=== PATIENT | male | born 1975 | race Caucasian/White ===

== ENCOUNTER 2023-12-06 06:59 | Emergency (ER) | payer OTHER, SELFPAY ==
[2023-12-06 07:11] VITALS: BP 147/89
--- NOTE | 2023-12-06 08:14 | ED.GENMED ---
History of Present Illness
General
Chief Complaint: Eye Problems
Source: patient
Exam Limitations: none
Time Seen by Provider: 12/06/23 08:04
Nursing documentation reviewed up to this point in time: agreed with
Travel History
Have you had any contact with someone who has COVID-19?: No
Do you have any symptoms of coronavirus? Fever > 100 degrees, chills, cough, shortness of breath, sore throat, loss of taste or smell, muscle aches, or headache?: No
History of Present Illness
History of Present Illness:
Patient is a 48-year male who presents to the ER for evaluation. He reports he had mild cold symptoms for the past several days but patient woke up yesterday with redness to bilateral eyes. He had discomfort throughout the day yesterday and did
call his family doctor and was prescribed Cipro eyedrops. He has used a total of 3 doses of eyedrops however complains of increasing pain to the eyes. He feels a lot of pressure behind his bilateral eyes. He reports his eyes are red bilaterally
and he did wake up with drainage from both of his eyes. He denies any actual fever or chills. He complains of swelling around his eyes. He does have light sensitivity. He does not wear contacts .
Past History
Past History
ED Past Medical History: HTN, Hypercholesterolemia and Other (Patient has a history of diverticulitis)
ED Past Surgical History: Bowel resection (due to diverticulitis), Orthopedic (laminectomy) and Other (The patient has had 3 hernia surgeries and a vasectomy. Left femur surgery for traumatic fracture.)
Social History
Tobacco: Non-smoker
Alcohol: Occasional
Drug: None
Personal: Single
Living: with family
Employment: Employed
Family History
Family History: Other
Review of Systems
Review of Systems
Allergies reviewed?: Yes
All Other Systems: ROS reviewed and negative except as documented in HPI and ROS
Constitutional: Reports no symptoms; Denies fever, fatigue or chills
EENT: Reports other (Bilateral eye redness swelling drainage)
Respiratory: Reports no symptoms
Cardiac: Reports no symptoms
ABD/GI: Reports no symptoms
Musculoskeletal: Reports no symptoms
Skin: Reports no symptoms
Neurological: Reports no symptoms
Psychiatric: Reports no symptoms
Phy Exam
General Physical Exam
General Presentation: no apparent distress
General age: appears stated age
General Skin: warm and dry
General Habitus: normal
General Mental: alert
General Hydration: appears well hydrated
Eye Exam
Eye Exam: PERRL, EOMI and other (Bilateral eyes are injected small amount of yellowish drainage in each eye eyelids mildly swollen, no pain with eye movement pupils equal round and reactive no corneal abrasion or dye uptake pressure in right eye 18
left eye 19)
Able to obtain acuity?: Yes
Eye Exam General: PERRL: bilateral and EOM intact: bilateral
Pupil Exam: Bilateral: round and reactive
Neurological Exam
Neurological Exam: alert and oriented x3
Musculoskeletal Exam
Musculoskeletal Exam: full ROM
Skin Exam
Skin Exam: normal color and warm/dry
Psychiatric Exam
Psychiatric Exam: normal mood/affect
Course
Orders/Labs/Results
Orders:
Orders
12/06/23 08:14
Visual Acuity- Treatment ONCE
Vital Signs
Initial and Last Documented VS:
Initial Vital Signs
Temp Pulse Resp BP Pulse Ox
99.1 F 63 16 147/89 99
12/06/23 07:11 12/06/23 07:11 12/06/23 07:11 12/06/23 07:11 12/06/23 07:11
Last Documented Vital Signs
Temp Pulse Resp BP Pulse Ox
99.1 F 63 16 147/89 99
12/06/23 07:11 12/06/23 07:11 12/06/23 07:11 12/06/23 07:11 12/06/23 07:11
MDM/Problems Addressed
Differential Diagnosis Includes:
Not limited to viral syndrome, conjunctivitis less likely glaucoma less likely cellulitis
MDM/Problems Addressed:
Patient started with mild cold symptoms and then developed redness to bilateral eyes with crusting, drainage yesterday. He used Polytrim and spoke with his family prescribed him Cipro. He took 3 doses of Cipro eyedrops but complains of
increasing redness woke up with crusting eyes today. Patient no acute distress minimal swelling around both eyes likely conjunctivitis patient denies any fevers minimally blurry vision from drainage. Patient with normal pressures no evidence of
septal orbital cellulitis at this time patient very nontoxic-appearing increasing redness may be possible side effect of Cipro however likely viral conjunctivitis which will resolve on its own. Will however have patient stop Cipro and start
Polytrim with close outpatient follow-up ophthalmology
*Critical Care Note
Total Time (30-74mins, 75-104mins- exclusive of procedures): Not Applicable
ED Attending Note
-
Portions of this chart may have been created with voice recognition software.� Occasional wrong word or��sound alike� substitutions may have occurred due to the inherent limitations of voice recognition software.
Discharge Plan
Departure
Patient Disposition: Home (Routine Discharge)
Date of Disposition: 12/06/23
Time of Disposition: 09:14
Patient with high blood pressure during this ER visit?: Yes
Condition: Fair
Covid-19: Not Applicable
Discharge Problem:
Conjunctivitis
Instructions: Conjunctivitis (Noninfectious Pinkeye) (DC), BLOOD PRESSURE
Prescriptions:
New
polymyxin B sulf-trimethoprim 10,000 unit- 1 mg/mL drops
1 drp ophthalmic (eye) Q3H 7 Days Qty: 10 0RF
Rx Instructions:
apply to bilateral eyes
No Action
simvastatin 40 MG tablet
40 mg PO QPM
diphenhydramine HCl [Benadryl] 25 MG capsule
25 mg PO PRN PRN (Reason: itching)
lisinopril-hydrochlorothiazide 1 EACH tablet
1 ea PO DAILY
hydromorphone 4 MG tablet
4 mg PO BIDPRN PRN (Reason: pain)
prednisone 20 MG tablet
40 mg PO DAILY Qty: 10 0RF
diazepam 5 MG tablet
5 mg PO TIDPRN PRN (Reason: Muscle relaxent) Qty: 15 0RF
hydromorphone 4 MG tablet
4 mg PO Q6HPRN PRN (Reason: Pain) Qty: 15 0RF
prednisone 20 MG tablet
40 mg PO DAILY Qty: 10 0RF
hydromorphone 4 MG tablet
4 mg PO Q6HPRN PRN (Reason: Pain) Qty: 10 0RF
oxycodone-acetaminophen [Percocet] 5-325 mg tablet
1 tab PO Q6HPRN PRN (Reason: pain) Qty: 10 0RF
sucralfate [Carafate] 100 mg/mL suspension
10 ml PO ACHS Qty: 400 0RF
Referrals:
Brionna iVckers PA-C [Family Provider] -
Debbie Winters MD [Active] -
Activity Restrictions/Additional Instructions:
As discussed you were given a prescription for Polytrim. Start Polytrim today. Instill 1 drop in both eyes every 3 hours while awake for 7 to 10 days. Stop Cipro eyedrops. You may take ibuprofen every 8 hours for discomfort or alternate with
Tylenol. Cool compresses to eyes as needed. Follow-up with ophthalmology in the next several days. Return if any worsening of symptoms including increased pain decreased vision facial swelling facial redness or any further concerns.
Interventions
Interventions:
*Risk Screen - Suicide Last Done: 12/06/23 07:11
*General Assessment Last Done: 12/06/23 08:32
*Neglect/Abuse Screening Last Done: 12/06/23 08:32
*ED COVID-19 Vaccine History Last Done: 12/06/23 07:11
[2023-12-06 09:21] VITALS: BP 142/68
== END 2023-12-06 09:22 | disposition home or self-care (01) ==
LOC: EMR 06:59
PROVIDERS: EMERGENCY PHYSICIAN Emergency Medicine; FAMILY PHYSICIAN Physician Assistant
DX: H10.9 Unspecified conjunctivitis (principal); I10 Essential (primary) hypertension; J00 Acute nasopharyngitis [common cold]
CPT/HCPCS: 99283

== ENCOUNTER 2024-02-12 06:13 | Day surgery (SDC) | payer OTHER, SELFPAY ==
[2024-02-12] VITALS (10 sets, daily range): BP systolic 136–146; BP diastolic 82–89; BMI 28.6
[2024-02-12] MEDS: CELEBREX 200 MG PO (11:33)
[2024-02-12] MEDS: TYLENOL 1000 MG PO (11:33)
[2024-02-12] MEDS: NORMOSOL-R 1000 IV (11:35)
--- NOTE | 2024-02-12 11:41 | PTCARENOTE ---
Per Dr. Gilliam patient does not need a PT consult prior to surgery (per pre-op orders). Disregard order. Will monitor patient.
[2024-02-12] MEDS: ZOFRAN 4 MG IV (13:35)
[2024-02-12] MEDS: COMPAZINE 5 MG IV (13:53)
== END 2024-02-12 15:32 | disposition home or self-care (01) ==
LOC: SDS 06:13
PROVIDERS: ATTENDING PHYSICIAN Specialist
DX: M19.012 Primary osteoarthritis, left shoulder (principal); M89.512 Osteolysis, left shoulder
CPT/HCPCS: 29824

== ENCOUNTER 2024-03-08 07:25 | Emergency (ER) | payer OTHER, SELFPAY ==
[2024-03-08 07:31] VITALS: BP 149/103
[2024-03-08] MEDS: DILAUDID 0.5 MG IM (07:44)
--- NOTE | 2024-03-08 08:16 | ED.GENMED ---
History of Present Illness
General
Chief Complaint: Male Genito-Urinary Symptoms
Time Seen by Provider: 03/08/24 07:41
Travel History
Have you had any contact with someone who has COVID-19?: No
Do you have any symptoms of coronavirus? Fever > 100 degrees, chills, cough, shortness of breath, sore throat, loss of taste or smell, muscle aches, or headache?: No
History of Present Illness
History of Present Illness:
48-year-old male who presents to the emergency department for evaluation of relatively sudden onset left lower back pain radiating to the left testicle beginning last night. Pain is sharp in nature and he has exquisite tenderness to any palpation
of the left testicle. Denies any dysuria, hematuria, urinary urgency or frequency. No fevers or chills. Does have chronic low back pain secondary to degenerative disc disease but states this is different from what he typically experiences pain
lopez. No nausea or vomiting. No lower GI symptoms
Past History
Past History
ED Past Medical History: HTN, Hypercholesterolemia and Other (Patient has a history of diverticulitis)
ED Past Surgical History: Bowel resection (due to diverticulitis), Orthopedic (laminectomy) and Other (The patient has had 3 hernia surgeries and a vasectomy. Left femur surgery for traumatic fracture.)
Social History
Tobacco: Non-smoker
Alcohol: Occasional
Drug: None
Personal: Single
Living: with family
Employment: Employed
Family History
Family History: Other
Review of Systems
Review of Systems
Allergies reviewed?: Yes
All Other Systems: ROS reviewed and negative except as documented in HPI and ROS
Phy Exam
Physical Exam
Physical Exam:
GEN: Well appearing, NAD, WDWN
HEENT: Oral mucosa moist, no scleral icterus
Cardiac: Regular rate
Lung: No respiratory distress, no tachypnea
: Severe tenderness elicited to the left hemiscrotum, no obvious swelling or erythema, normal testicular lie bilaterally unable to adequately assess cremasteric reflex secondary to patient pain
MSK: No gross deformity or injuries
Skin: Good color, no pallor or jaundice, no rashes
Neuro: AO x3, moves all extremities freely
Psych: Calm, cooperative
Course
Orders/Labs/Results
Orders:
Orders
03/08/24 07:35
Scrotum US [US Scrotum] Urgent
Comment:
Reason For Exam: left testicle pain severe
03/08/24 07:41
HYDROmorphone [Dilaudid] 0.5 mg IM NOW STA
03/08/24 08:59
CT Abd/pel Without Iv Or Oral Urgent
Comment:
Reason For Exam: L flank pain
03/08/24 09:46
Ketorolac [Toradol] 30 mg IM NOW STA
Vital Signs
Initial and Last Documented VS:
Initial Vital Signs
Temp Pulse Resp BP Pulse Ox
97.7 F 66 18 149/103 100
03/08/24 07:31 03/08/24 07:31 03/08/24 07:31 03/08/24 07:31 03/08/24 07:31
Last Documented Vital Signs
Temp Pulse Resp BP Pulse Ox
97.7 F 66 18 149/103 100
03/08/24 07:31 03/08/24 07:31 03/08/24 07:31 03/08/24 07:31 03/08/24 07:31
MDM/Problems Addressed
MDM/Problems Addressed:
Ultrasound/obtained out of abundance of concern for testicular torsion and this was unremarkable. CT scan obtained to evaluate for potential ureterolithiasis was also unremarkable. 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
improved after medication administration emergency department. Discussed supportive care,
*Critical Care Note
Total Time (30-74mins, 75-104mins- exclusive of procedures): Not Applicable
ED Attending Note
-
Portions of this chart may have been created with voice recognition software.� Occasional wrong word or��sound alike� substitutions may have occurred due to the inherent limitations of voice recognition software.
Discharge Plan
Departure
Patient Disposition: Home (Routine Discharge)
Date of Disposition: 03/08/24
Time of Disposition: 10:33
Patient with high blood pressure during this ER visit?: Yes
Discharge Problem:
Left lumbosacral radiculopathy
Instructions: Radiculopathy (DC)
Prescriptions:
New
methylprednisolone [Medrol (Estuardo)] 4 mg tablets,dose pack
See Rx Instructions .ROUTE .COMPLEX Qty: 21 0RF
Rx Instructions:
orally per package directions
oxycodone-acetaminophen [Percocet] 5-325 mg tablet
1 tab PO Q6HPRN PRN (Reason: pain) Qty: 8 0RF
No Action
simvastatin 40 MG tablet
40 mg PO DAILY
trazodone 50 mg Tablet
50 mg PO HS PRN (Reason: Insomnia)
lisinopril-hydrochlorothiazide 20-12.5 mg Tablet
1 tab PO DAILY
esomeprazole magnesium [Nexium] 20 mg Capsule,Delayed Release(Dr/Ec)
20 mg PO DAILY
Referrals:
Brionna Vickers PA-C [Family Provider] -
Interventions
Interventions:
*Risk Screen - Suicide Last Done: 03/08/24 09:57
*General Assessment Last Done: 03/08/24 09:57
*Neglect/Abuse Screening Last Done: 03/08/24 09:57
ED- Fall Risk Assessment Last Done: 03/08/24 09:58
*ED COVID-19 Vaccine History Last Done: 03/08/24 09:57
*Nursing Disposition Last Done: 03/08/24 10:38
ED-Male Genitourinary Assessment Last Done: 03/08/24 09:58
Discharge Date and Time
Discharge Date/Time: 03/08/24 10:39
Print Language: SAMI
[2024-03-08] MEDS: TORADOL 30 MG IM (09:54)
== END 2024-03-08 10:39 | disposition home or self-care (01) ==
LOC: EMR 07:25
PROVIDERS: EMERGENCY PHYSICIAN Emergency Medicine; FAMILY PHYSICIAN Physician Assistant
DX: M54.17 Radiculopathy, lumbosacral region (principal); M54.50 Low back pain, unspecified; I10 Essential (primary) hypertension; E78.00 Pure hypercholesterolemia, unspecified; G89.29 Other chronic pain
CPT/HCPCS: 99284; 96372; 74176; 76870; 93976

== ENCOUNTER 2024-07-18 01:36 | Emergency (ER) | payer OTHER, SELFPAY ==
[2024-07-18 01:38] VITALS: BP 130/84
--- NOTE | 2024-07-18 03:08 | ED.GENMED ---
History of Present Illness
General
Chief Complaint: Back Pain
Time Seen by Provider: 07/18/24 03:08
History of Present Illness
History of Present Illness:
TIME OF INITIAL ENCOUNTER: 3:30 AM
HPI: The patient presents with sciatica type pain. He intermittently about once or twice a year has pain that radiates from the right low back through the left side of the testicle and the left thigh. This is the same problem that he had before.
He is not necessarily want to try narcotic pain medication. He has had a laminectomy in the past which has not helped.
EXAM:
GENERAL: Well appearing but in mild to moderate distress due to pain
HEENT: Moist oral mucosa
NEUROLOGIC: Excellent strength all extremities, no obvious coordination deficits, excellent L5 and S1 function to both lower extremities, no sensory deficit
PSYCHIATRIC: Appropriate mental status, normal insight and judgement
EXTREMITIES: Nontender, no edema, moves all extremities equally
SKIN: No rash, no lesions
BACK: No significant tenderness to palpation of the lumbar spine
NUMBER AND COMPLEXITY OF PROBLEMS ADDRESSED AT THE ENCOUNTER
� Chronic conditions affecting care: Sciatica, high blood pressure hyperlipidemia
� Acute Exacerbation and/or Progression of Chronic Illness: This is an acute exacerbation of chronic sciatica
� Differential Diagnosis includes: Sciatica, doubt kidney stone, although he has pain referred to the testicle, he is certain that the pain is coming from the back.
AMOUNT AND/OR COMPLEXITY OF DATA TO BE REVIEWED AND ANALYZED
� I performed an independent evaluation of and my interpretation is:
EKG:
CT:
X-rays:
Laboratory Studies:
Other:
� Review of other/old records: I reviewed records, the patient was here in March with similar pain. At that time he was given Toradol; CT abdomen pelvis and scrotal ultrasound was obtained which was unremarkable
� Clinical information was obtained by an independent historian: None needed
� Prescriptions/Medications Considered but not given:
� Further testing considered but not performed: No clear indication for imaging at this time as he has no back pain red flags
RISK OF COMPLICATIONS AND/OR MORBIDITY OR MORTALITY OF PATIENT MANAGEMENT
� Social determinants of health affecting care: Lives at home, runs [employer]
� Discussion with other providers:
� Escalation of care including admission/observation vs risk of discharge considered: Will try Toradol as well as steroids.
ANY OTHER UPDATES:
5:30 AM: The patient feels somewhat improved but will try an additional dose of Toradol. Although he does not necessarily want narcotics, he would like to try something stronger for pain. Will give short course of Vicodin as he did not tolerate
Percocet in the past.
Past History
Past History
ED Past Medical History: HTN, Hypercholesterolemia and Other (Patient has a history of diverticulitis)
ED Past Surgical History: Bowel resection (due to diverticulitis), Orthopedic (laminectomy) and Other (The patient has had 3 hernia surgeries and a vasectomy. Left femur surgery for traumatic fracture.)
Social History
Tobacco: Non-smoker
Alcohol: Occasional
Drug: None
Personal: Single
Living: with family
Employment: Employed
Family History
Family History: Other
Phy Exam
Physical Exam
Physical Exam:
See HPI
Course
Orders/Labs/Results
Orders:
Orders
07/18/24 03:27
Ketorolac [Toradol] 30 mg IM NOW STA
Prednisone [Deltasone] 50 mg PO NOW STA
07/18/24 03:43
Prednisone [Deltasone] 50 mg .ROUTE .STK-MED ONE
07/18/24 05:36
Ketorolac [Toradol] 30 mg IM NOW STA
Vital Signs
Initial and Last Documented VS:
Initial Vital Signs
Temp Pulse Resp BP Pulse Ox
97.4 F 74 22 130/84 100
07/18/24 01:38 07/18/24 01:38 07/18/24 01:38 07/18/24 01:38 07/18/24 01:38
Last Documented Vital Signs
Temp Pulse Resp BP Pulse Ox
97.4 F 54 18 118/75 99
07/18/24 01:38 07/18/24 03:52 07/18/24 03:52 07/18/24 03:52 07/18/24 03:52
*Critical Care Note
Total Time (30-74mins, 75-104mins- exclusive of procedures): Not Applicable
ED Attending Note
-
Portions of this chart may have been created with voice recognition software.� Occasional wrong word or��sound alike� substitutions may have occurred due to the inherent limitations of voice recognition software.
Discharge Plan
Departure
Patient Disposition: Home (Routine Discharge)
Date of Disposition: 07/18/24
Time of Disposition: 05:33
Patient with high blood pressure during this ER visit?: Yes
Discharge Problem:
Sciatica
Instructions: Sciatica (DC)
Prescriptions:
New
hydrocodone-acetaminophen 5-325 mg tablet
1 tab PO Q8H PRN (Reason: Pain) Qty: 14 0RF
prednisone 50 mg tablet
50 mg PO DAILY Qty: 4 0RF
No Action
simvastatin 40 MG tablet
40 mg PO DAILY
trazodone 50 mg Tablet
50 mg PO HS PRN (Reason: Insomnia)
lisinopril-hydrochlorothiazide 20-12.5 mg Tablet
1 tab PO DAILY
esomeprazole magnesium [Nexium] 20 mg Capsule,Delayed Release(Dr/Ec)
20 mg PO DAILY
methylprednisolone [Medrol (Estuardo)] 4 mg tablets,dose pack
See Rx Instructions .ROUTE .COMPLEX Qty: 21 0RF
Rx Instructions:
orally per package directions
oxycodone-acetaminophen [Percocet] 5-325 mg tablet
1 tab PO Q6HPRN PRN (Reason: pain) Qty: 8 0RF
Referrals:
UNKNOWN - PT DOES,NOT KNOW [Family Provider] -
Interventions
Interventions:
*Risk Screen - Suicide Last Done: 07/18/24 01:38
*General Assessment Last Done: 07/18/24 02:27
*Neglect/Abuse Screening Last Done: 07/18/24 01:38
ED- Fall Risk Assessment Last Done: 07/18/24 02:28
*ED COVID-19 Vaccine History Last Done: 07/18/24 02:27
ED-Musculoskeletal Assessment Last Done: 07/18/24 02:27
Discharge Date and Time
Print Language: IRAQI
[2024-07-18 03:10] VITALS: BMI 29.7
[2024-07-18] MEDS: TORADOL 30 MG IM ×2 (03:45→05:50)
[2024-07-18] MEDS: DELTASONE 50 MG PO (03:45)
[2024-07-18 03:52] VITALS: BP 118/75
[2024-07-18 05:52] VITALS: BP 131/89
== END 2024-07-18 05:55 | disposition home or self-care (01) ==
LOC: EMR 01:36
PROVIDERS: EMERGENCY PHYSICIAN Emergency Medicine
DX: M54.30 Sciatica, unspecified side (principal); I10 Essential (primary) hypertension; E78.00 Pure hypercholesterolemia, unspecified
CPT/HCPCS: 99282; 96372

== ENCOUNTER → 2025-02-08 14:37 | Outpatient (REF) | payer OTHER, SELFPAY | LOC: DHSLP 14:37 | PROVIDERS: ATTENDING PHYSICIAN Physician Assistant | DX: G47.33 Obstructive sleep apnea (adult) (pediatric) (principal) | CPT/HCPCS: 95810 ==